=== PATIENT | female | born 1980 | race Caucasian/White ===

== ENCOUNTER 2020-09-03 20:07 | Emergency (ER) | payer OTHER ==
[2020-09-03 20:21] VITALS: BP 91/65; PULSE 85; TEMP 98; BMI 22.1
[2020-09-03 22:07] LABS: EPI CELLS 11 /uL (0-25.1); HYALINE CASTS 1 /uL (0-3.1); PH,URINE >= 9.0 (5.0-8.0); URINE APPEARANCE TURBID; URINE BACTERIA 70 /uL (0-1359); URINE BILIRUBIN NEGATIVE (NEGATIVE); URINE COLOR YELLOW; URINE GLUCOSE (UA) NEGATIVE (NEGATIVE); URINE KETONE NEGATIVE (NEGATIVE); URINE LEUK ESTERASE NEGATIVE (NEGATIVE); URINE NITRITE NEGATIVE (NEGATIVE); URINE PROTEIN NEGATIVE (NEGATIVE); URINE RBC 940 /uL (0-23.9); URINE UROBILINOGEN 0.2 mg/dL (0.2-1.0); URINE WBC 9 /uL (0-25.8)
[2020-09-03 22:25] LABS: BASO % 1.5 % (0-2.0); EOS % 2.1 % (0-4.5); HEMATOCRIT 38.2 % (32.4-45.2); HEMOGLOBIN 12.9 GM/dL (10.7-15.3); MCH 31.5 pg (25.7-33.7); MCHC 33.8 g/dl (32.0-36.0); MEAN CELL VOLUME 93.1 fl (80-96); MONO % 6.6 % (3.8-10.2); NEUT % 61.8 % (42.8-82.8); PLATELET COUNT 217 K/MM3 (134-434); RBC 4.11 M/mm3 (3.60-5.2); WHITE BLOOD COUNT 5.6 K/mm3 (4.0-10.0)
[2020-09-03] MEDS ORDERED: ACETAMINOPHEN 325 MG TABLET (FP) PO ONE (23:24)
[2020-09-03] MEDS ORDERED: ACETAMINOPHEN 325 MG TABLET (FP) ONE (23:27)
== END 2020-09-03 23:32 | disposition home or self-care (01) ==
LOC: JER 20:07
DX: O03.9 Complete or unspecified spontaneous abortion without complication (principal)
CPT/HCPCS: 36415; 76817-TC; 81003; 84702; 85025; 86850; 86900; 86901; 99284-25